=== PATIENT | female | born 1960 | race Caucasian/White ===

== ENCOUNTER 2020-10-05 17:02 | Emergency (ER) | payer OTHER ==
[2020-10-05] MEDS ORDERED: FLEXERIL5 MG PO (22:02)
[2020-10-05] MEDS ORDERED: NAPROXEN500 MG PO (22:02)
== END 2020-10-05 22:16 | disposition home or self-care (01) ==
LOC: FER 17:02
DX: T14.8XXA Other injury of unspecified body region, initial encounter (principal); M54.6 Pain in thoracic spine; M54.5 Low back pain; M79.661 Pain in right lower leg; F17.210 Nicotine dependence, cigarettes, uncomplicated; V49.40XA Driver injured in collision with unspecified motor vehicles in traffic accident, initial encounter; Y92.410 Unspecified street and highway as the place of occurrence of the external cause
CPT/HCPCS: 72128; 72131; 93971; 96372; J1100; J1885